=== PATIENT | female | born 1980 | race Caucasian/White ===

== ENCOUNTER 2017-02-08 15:44 | Emergency (ER) | payer OTHER ==
--- NOTE | ~2017-02-08 | CR63 ---
[facility] A Service of [facility] [place] RADIOLOGY TEXT RESULTS PATIENT: GRACE GREEN LOCATION: [facility] : 80 UNIT #: [id number] AGE: [address]: Vanessa Alvarenga SEX: F ORDER DR: [id number] [address] [address] [id number] E MR#: [id number] Acc #: [id number] NAME: GRACE GREEN : 1980 SEX: F STUDY DATE/TIME: 02/08/2017 15:23 UNIT: [place] ROOM: STUDY DESCRIPTION: CR Chest 2 View Attending Physician: Vanessa Alvarenga Pa-C Ordering Physician: Vanessa Alvarenga Pa-C MEDICAL IMAGING REPORT This report is preliminary unless electronic signature is present EXAM 2 views of the chest COMPARISON None. INDICATIONS 36-year-old female with cough, chest congestion, fever and dyspnea for 2 days. FINDINGS Cardiomediastinal silhouette is within normal limits. No evidence of pneumothorax, pleural effusion or acute airspace disease. Surgical clips in the upper abdomen, perhaps reflecting prior cholecystectomy, only well seen on lateral view. IMPRESSION No acute radiographic abnormality. Dictated by... Aguilar Allison M.D. THIS IS AN ELECTRONICALLY VERIFIED REPORT Aguilar Allison M.D. at 02/09/2017 2:55 PM BLM/pcl TD: 02/08/2017 17:31 JOB #: [id number] MEDICAL IMAGING REPORT [facility] A Service of [facility] [place] RADIOLOGY TEXT RESULTS PATIENT: GRACE GREEN LOCATION: [facility] : 80 UNIT #: [id number] AGE: [address]: Vanessa Alvarenga SEX: F ORDER DR: Page 1 of 1 COPY
== END 2017-02-08 16:06 | disposition home or self-care (01) ==
LOC: CFTX 15:44
DX: J06.9 Acute upper respiratory infection, unspecified (principal); Z20.818 Contact with and (suspected) exposure to other bacterial communicable diseases; Z90.49 Acquired absence of other specified parts of digestive tract
CPT/HCPCS: 71020; 99283

== ENCOUNTER 2017-02-10 07:12 | Emergency (ER) | payer OTHER | END 2017-02-10 07:25 | disposition home or self-care (01) | LOC: CED 07:12 | DX: L50.0 Allergic urticaria (principal); F17.200 Nicotine dependence, unspecified, uncomplicated; Z90.49 Acquired absence of other specified parts of digestive tract; Z90.710 Acquired absence of both cervix and uterus; Z98.51 Tubal ligation status | CPT/HCPCS: 99282 ==